=== PATIENT | female | born 1970 | race Caucasian/White ===

== ENCOUNTER → 2017-02-01 | Outpatient (CLI) | payer BC ==
[~2017-02-01] MED LIST: CIPRO500 MG PO; DAILY MULTIPLE1 EAC1 PO; MOTRIN-DPS600 MG PO; TYLENOL DPS325 MG PO; VITAMIN B COMP1 EACH PO
== END | disposition home or self-care (01) ==
LOC: RAD.S 15:00
DX: M79.661 Pain in right lower leg (principal)